=== PATIENT | female | born 1975 | race Caucasian/White ===

== ENCOUNTER 2017-01-23 17:13 | Emergency (ER) | payer OTHER ==
[~2017-01-23] VITALS: Ht 162.6 cm; Wt 68.0 kg
[~2017-01-23 17:13] MED LIST: ADDE20XR PO; ARMO90TA PO; CARV12.5 PO; CLON1 PO; DULO60 PO; TRAZ100 PO; TRAZ50TA78 PO
[2017-01-23 17:24] VITALS: BP 114/84; PULSE 86; RESP 20; TEMP 98.4; O2SAT 99
[2017-01-23 18:49] VITALS: BP 126/66; PULSE 68; RESP 16; TEMP 98.6; O2SAT 98
[2017-01-23] MEDS ORDERED: TRAZ1TAB45 PO (18:49)
--- NOTE | 2017-01-23 19:09 | PD ---
HPI Chief Complaint: Psychiatric Symptoms Time Seen by Provider: 18:47 Travel History International Travel<30 days: No Contact w/Intl Traveler<30days: No Traveled to known affect area: No History of Present Illness HPI 41-year-old female that presents to the ED for evaluation of psych. Patient was Carrizales acted by police after apparently she made suicidal threats to and my techs and took photos that she was in a kill herself. This is per Carrizales act. Per patient herself her is trying to make her seem like an unfit mother. She denies any suicidal or homicidal ideation to me. She does have a history of psychiatric illness and has been here before for Carrizales act. She denies any history of substance abuse. She is a history of psoriasis. She denies any hallucinations. Symptoms appear to be worsening for the past couple of days secondary to her arguments with her . Police was called by the who Carrizales acted her. PFSH Past Medical History ADHD: Yes Arthritis: Yes (Psoriatic Arthritis per pt.) Asthma: No Autoimmune Disease: Yes (Psortiatic Arthritis per pt. New Dx per pt. ) Blood Disorders: No Depression: Yes Heart Rhythm Problems: No Cancer: No Cardiovascular Problems: Yes (tachycardia) High Cholesterol: Yes Chest Pain: No Congestive Heart Failure: No COPD: No Cerebrovascular Accident: No Patient Takes Glucophage: No Diminished Hearing: No Endocrine: Yes Gastrointestinal Disorders: No Genitourinary: No Headaches: No Hypertension: No Immune Disorder: No Implanted Vascular Access Dvce: No Musculoskeletal: No Neurologic: No Psychiatric: No Reproductive: No Respiratory: No Migraines: No Myocardial Infarction: No Seizures: Yes (2005, XANAX WITHDRAWL) Sleep Apnea: No Thyroid Disease: Yes Tetanus Vaccination: < 5 Years ?: Not LMP: Approx 01/04/2017 per pt. : 2 Para: 2 Miscarriage: 0 : 0 Tubal Ligation: Yes (2011) Past Surgical History Abdominal Surgery: No AICD: No Cardiac Surgery: No Section: Yes (X2) Ear Surgery: No Endocrine Surgery: No Eye Surgery: No Genitourinary Surgery: No Gynecologic Surgery: Yes (c section x 2) Joint Replacement: No Neurologic Surgery: No Oral Surgery: No Pacemaker: No Thoracic Surgery: No Other Surgery: Yes (breast augmentation) Social History Alcohol Use: Yes (3-4/WEEK - Social Use only per pt. 01/23/17) Tobacco Use: Yes (1/3PPD per pt. ) Substance Use: No (Pt denies.) Allergies-Medications (Allergen,Severity, Reaction): Coded Allergies: prochlorperazine (Unverified Allergy, Severe, DYSTONIA, 01/23/17) Per pt. Reported Meds & Prescriptions Reported Meds & Active Scripts Active Reported Trazodone (Trazodone HCl) 150 Mg Tablet 150 Mg PO HS Klonopin (Clonazepam) 1 Mg Tab 1 Mg PO BID Coreg (Carvedilol) 12.5 Mg Tab 12.5 Mg PO BID [place] Thyroid (Thyroid) 90 Mg Tab 90 Mg PO DAILY Adderall Xr 24 HR (Amphetamine/Dextroamphetamine) 20 Mg Cap 20 Mg PO DAILY Once daily in the morning. Review of Systems Except as stated in HPI: all other systems reviewed are Neg Physical Exam Narrative GENERAL: SKIN: Warm and dry. HEAD: Atraumatic. Normocephalic. EYES: Pupils equal and round. No scleral icterus. No injection or drainage. ENT: No nasal bleeding or discharge. Mucous membranes pink and moist. Tongue is midline. No uvula deviation. NECK: Trachea midline. No JVD. CARDIOVASCULAR: Regular rate and rhythm. RESPIRATORY: No accessory muscle use. Clear to auscultation. Breath sounds equal bilaterally. GASTROINTESTINAL: Abdomen soft, non-tender, nondistended. Hepatic and splenic margins not palpable. MUSCULOSKELETAL: Extremities without clubbing, cyanosis, or edema. No obvious deformities. Full range of motion of the upper and lower extremities bilaterally. 2+ pulses bilaterally. NEUROLOGICAL: Awake and alert. No obvious cranial nerve deficits. Motor grossly within normal limits. Five out of 5 muscle strength in the arms and legs. Normal speech. PSYCHIATRIC: Anxious mood and affect; insight and judgment normal. Data Data Last Documented VS Vital Signs Date Time Temp Pulse Resp B/P (MAP) Pulse Ox O2 Delivery O2 Flow Rate FiO2 01/23/17 18:49 98.6 68 16 126/66 (86) 98 Orders Orders Complete Blood Count With Diff (01/23/17 18:48) Comprehensive Metabolic Panel (01/23/17 18:48) Psych Screen (01/23/17 18:48) Drug Screen, Random Urine (01/23/17 18:48) Alcohol (Ethanol) (01/23/17 18:48) Salicylates (Aspirin) (01/23/17 18:48) Tylenol (Acetaminophen) (01/23/17 18:48) Lorazepam (Ativan) (01/23/17 19:15) Ibuprofen (Motrin) (01/23/17 20:15) Labs Laboratory Tests Test 01/23/17 19:35 01/23/17 19:59 White Blood Count 7.3 TH/MM3 Red Blood Count 4.07 MIL/MM3 Hemoglobin 11.4 GM/DL Hematocrit 35.3 % Mean Corpuscular Volume 86.6 FL Mean Corpuscular Hemoglobin 28.1 PG Mean Corpuscular Hemoglobin Concent 32.4 % Red Cell Distribution Width 17.0 % Platelet Count 366 TH/MM3 Mean Platelet Volume 7.6 FL Neutrophils (%) (Auto) 65.0 % Lymphocytes (%) (Auto) 22.3 % Monocytes (%) (Auto) 9.1 % Eosinophils (%) (Auto) 2.9 % Basophils (%) (Auto) 0.7 % Neutrophils # (Auto) 4.7 TH/MM3 Lymphocytes # (Auto) 1.6 TH/MM3 Monocytes # (Auto) 0.7 TH/MM3 Eosinophils # (Auto) 0.2 TH/MM3 Basophils # (Auto) 0.1 TH/MM3 CBC Comment DIFF FINAL Differential Comment Salicylates Level 1.8 MG/DL MDM Medical Decision Making Medical Screen Exam Complete: Yes Emergency Medical Condition: Yes Medical Record Reviewed: Yes Interpretation(s) CBC Diagram 01/23/17 19:35 Differential Diagnosis Depression versus suicidal ideation versus anxiety versus adjustment disorder versus mood disorder versus bipolar disorder versus schizophrenia versus paranoid disorder versus psychosis versus substance abuse versus alcohol abuse versus alcohol induced psychosis versus homicidality addition versus cutting versus personality disorder Narrative Course 41-year-old female that presents to the ED for evaluation of psych. Patient was properly examined and was found to have signs and symptoms consistent with psychiatric illness. No sign of acute medical distress. Labs were drawn. Patient requested something for sleep secondary to anxiety and she was given Ativan. Patient will be medically clear. Okay to be seen by psych. Mental health screening was discussed with the patient. Diagnosis Primary Impression: Mood disorder Howard Martinez Jan 23, 2017 19:09
[2017-01-23] MEDS ORDERED: LORazepam 2 MG TAB PO ONE (19:15)
[2017-01-23 20:01] LABS: AUTOMATED NEUTROPHIL # 4.7 TH/MM3 (1.8-7.7); BASOPHIL # 0.1 TH/MM3 (0-0.2); BASOPHIL % 0.7 % (0.0-2.0); EOSINOPHIL # 0.2 TH/MM3 (0-0.4); EOSINOPHIL % 2.9 % (0.0-4.0); HEMATOCRIT 35.3 % (35.0-46.0); HEMO FLAGS DIFF FINAL; LYMPH % 22.3 % (9.0-44.0); LYMPHOCYTE # 1.6 TH/MM3 (1.0-4.8); MEAN CELL VOLUME 86.6 FL (80.0-100.0); MEAN CORPUSCULAR HEMOGLOBIN 28.1 PG (27.0-34.0); MEAN CORPUSCULAR HGB CONC 32.4 % (32.0-36.0); MONO % 9.1 % (0.0-8.0); PLATELET COUNT 366 TH/MM3 (150-450); RED BLOOD COUNT 4.07 MIL/MM3 (4.00-5.30); WHITE BLOOD COUNT 7.3 TH/MM3 (4.0-11.0)
[2017-01-23 20:13] LABS: ANION GAP 9 MEQ/L (5-15); AST (GOT) 17 U/L (15-37); BLOOD UREA NITROGEN 13 MG/DL (7-18); CHLORIDE 103 MEQ/L (98-107); GLOMERULAR FILTRATION RATE 97 ML/MIN (>89); POTASSIUM 3.7 MEQ/L (3.5-5.1); SODIUM (NA) 137 MEQ/L (136-145)
[2017-01-23 20:14] LABS: ALT (GPT) 19 U/L (10-53)
[2017-01-23] MEDS ORDERED: IBUPROFEN 800 MG TAB PO ONE (20:15)
[2017-01-23 20:17] LABS: ALKALINE PHOSPHATASE 74 U/L (45-117); TOTAL BILIRUBIN ADULT 0.2 MG/DL (0.2-1.0)
[2017-01-23 20:21] LABS: ACETAMINOPHEN LESS THAN 2.0 MCG/ML (10.0-30.0); ALCOHOL LESS THAN 3 MG/DL (0-5)
[2017-01-24 06:10] VITALS: BP 114/59; PULSE 97; RESP 17; O2SAT 100
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
--- NOTE | 2017-01-24 08:53 | PD ---
Physical Exam Time Seen by Provider: 08:52 ERIKA Busby has evaluated patient, lifted 3 cracked, and the patient will be discharged. Data Data Last Documented VS Vital Signs Date Time Temp Pulse Resp B/P (MAP) Pulse Ox O2 Delivery O2 Flow Rate FiO2 01/24/17 06:10 97 17 114/59 (77) 100 01/23/17 18:49 98.6 Orders Orders Complete Blood Count With Diff (01/23/17 18:48) Comprehensive Metabolic Panel (01/23/17 18:48) Psych Screen (01/23/17 18:48) Drug Screen, Random Urine (01/23/17 18:48) Alcohol (Ethanol) (01/23/17 18:48) Salicylates (Aspirin) (01/23/17 18:48) Tylenol (Acetaminophen) (01/23/17 18:48) Lorazepam (Ativan) (01/23/17 19:15) Ibuprofen (Motrin) (01/23/17 20:15) Diet Regular Basic (01/24/17 Breakfast) Labs Laboratory Tests Test 01/23/17 19:35 01/23/17 19:59 White Blood Count 7.3 TH/MM3 Red Blood Count 4.07 MIL/MM3 Hemoglobin 11.4 GM/DL Hematocrit 35.3 % Mean Corpuscular Volume 86.6 FL Mean Corpuscular Hemoglobin 28.1 PG Mean Corpuscular Hemoglobin Concent 32.4 % Red Cell Distribution Width 17.0 % Platelet Count 366 TH/MM3 Mean Platelet Volume 7.6 FL Neutrophils (%) (Auto) 65.0 % Lymphocytes (%) (Auto) 22.3 % Monocytes (%) (Auto) 9.1 % Eosinophils (%) (Auto) 2.9 % Basophils (%) (Auto) 0.7 % Neutrophils # (Auto) 4.7 TH/MM3 Lymphocytes # (Auto) 1.6 TH/MM3 Monocytes # (Auto) 0.7 TH/MM3 Eosinophils # (Auto) 0.2 TH/MM3 Basophils # (Auto) 0.1 TH/MM3 CBC Comment DIFF FINAL Differential Comment Blood Urea Nitrogen 13 MG/DL Creatinine 0.67 MG/DL Random Glucose 87 MG/DL Total Protein 7.3 GM/DL Albumin 3.6 GM/DL Calcium Level 8.8 MG/DL Alkaline Phosphatase 74 U/L Aspartate Amino Transf (AST/SGOT) 17 U/L Alanine Aminotransferase (ALT/SGPT) 19 U/L Total Bilirubin 0.2 MG/DL Sodium Level 137 MEQ/L Potassium Level 3.7 MEQ/L Chloride Level 103 MEQ/L Carbon Dioxide Level 25.0 MEQ/L Anion Gap 9 MEQ/L Estimat Glomerular Filtration Rate 97 ML/MIN Salicylates Level 1.8 MG/DL Acetaminophen Level LESS THAN 2.0 MCG/ML Ethyl Alcohol Level LESS THAN 3 MG/DL Urine Opiates Screen NEG Urine Barbiturates Screen NEG Urine Amphetamines Screen POS Urine Benzodiazepines Screen POS Urine Cocaine Screen POS Urine Cannabinoids Screen NEG MDM Supervised Visit with CAROLEE: No Narrative Course ERIKA Aguirre has evaluated the patient, lifted the Carrizales act and the patient will be discharged home. Patient contracts safety. Denies suicidal or homicidal ideations. Patient will be provided community resource packet to [facility] for follow-up. Has friends and family for support. Patient is medically cleared for discharge. Diagnosis Primary Impression: Mood disorder Referrals: JOELLE (Out patient) [facility] Primary Care Physician Psychiatrist [facility] Patient Instructions: General Instructions, Mood Disorders (ED) Additional Instruction: Contract safety to your self and others Follow-up with psychiatry Follow-up with primary care provider Follow-up with Luis Armando Hector Return to the emergency department immediately with worsening of symptoms Med/Other Pt SpecificInfo: No Meds Exist/No RX given Disposition: 01 DISCHARGE HOME Condition: Stable Emerald Jackson Jan 24, 2017 08:53
[2017-01-24 08:54] VITALS: BP 114/59; TEMP 97.8
== END 2017-01-24 09:00 | disposition home or self-care (01) ==
LOC: NEDAMB 17:13 → NEPJ 01-24 09:00
DX: F39 Unspecified mood [affective] disorder (principal); F19.94 Other psychoactive substance use, unspecified with psychoactive substance-induced mood disorder; E07.9 Disorder of thyroid, unspecified; E78.00 Pure hypercholesterolemia, unspecified; F17.200 Nicotine dependence, unspecified, uncomplicated; Z79.899 Other long term (current) drug therapy; Z86.59 Personal history of other mental and behavioral disorders; Z87.39 Personal history of other diseases of the musculoskeletal system and connective tissue; Z86.2 Personal history of diseases of the blood and blood-forming organs and certain disorders involving the immune mechanism; Z86.79 Personal history of other diseases of the circulatory system
CPT/HCPCS: 80053; 80307; 85025; 99283

== ENCOUNTER 2017-02-28 20:52 | Emergency (ER) | payer SELFPAY ==
[~2017-02-28] VITALS: Ht 162.6 cm; Wt 66.6 kg
[~2017-02-28 20:52] MED LIST changes: -DULO60 PO; -TRAZ100 PO; +TRAZ1TAB14 PO; -TRAZ50TA78 PO
[2017-02-28 21:05] VITALS: BP 119/78; PULSE 99; RESP 15; TEMP 97.7; O2SAT 99
[2017-02-28] MEDS ORDERED: SODIUM CHLOR 0.9% 1000 ML INJ 1,000 ML IV SCH (21:43)
[2017-02-28] MEDS ORDERED: MORPHINE SULFATE 4 MG/ML INJ IV PUSH ONE (21:45)
[2017-02-28] MEDS ORDERED: SODIUM CHLORIDE 0.9% FLUSH 10 ML FLUSH IVF PRN (21:45)
--- NOTE | 2017-02-28 21:59 | PD ---
HPI Chief Complaint: Syncope/Near-Syncope Time Seen by Provider: 21:36 Travel History International Travel<30 days: No Contact w/Intl Traveler<30days: No Traveled to known affect area: No History of Present Illness HPI Patient is a 41-year-old female who presents to emergency room complaints of right-sided facial pain. Patient reports that she usually takes trazodone to go to sleep, reports that last night, she took her dose of trazodone and went to bed. Patient reports that she woke up in the middle night to use the restroom, reports that after she used the restroom, she stood up and had a syncopal episode. Reports that she thinks that she hit her head on the toilet and passed out onto the floor for a few minutes. Patient reports that she has not been drinking enough fluids and may have had an episode of orthostatic hypotension. Patient reports that she currently is not on anticoagulants, reports no chest pain or shortness of breath at this time. Patient reports that she noticed increased bruising's to her face tonight and crepitus to the right side of her face, patient was concerned for possible facial fracture. Patient also reports that she has pain to the right side of her hip, reports that she has been ambulating all day without any difficulties PFS Past Medical History ADHD: Yes Arthritis: Yes (Psoriatic Arthritis per pt.) Asthma: No Autoimmune Disease: Yes (Psortiatic Arthritis per pt. New Dx per pt. ) Blood Disorders: No Depression: Yes Heart Rhythm Problems: No Cancer: No Cardiovascular Problems: Yes (tachycardia) High Cholesterol: Yes Chest Pain: No Congestive Heart Failure: No COPD: No Cerebrovascular Accident: No Diminished Hearing: No Endocrine: Yes Gastrointestinal Disorders: No Genitourinary: No Headaches: No Hypertension: No Immune Disorder: No Implanted Vascular Access Dvce: No Musculoskeletal: No Neurologic: No Psychiatric: No Reproductive: No Respiratory: No Migraines: No Myocardial Infarction: No Seizures: Yes (2005, XANAX WITHDRAWL) Sleep Apnea: No Thyroid Disease: Yes Tetanus Vaccination: < 5 Years Influenza Vaccination: Yes ?: Not LMP: now : 2 Para: 2 Miscarriage: 0 : 0 Tubal Ligation: Yes (2011) Past Surgical History Abdominal Surgery: No AICD: No Cardiac Surgery: No Section: Yes (X2) Ear Surgery: No Endocrine Surgery: No Eye Surgery: No Genitourinary Surgery: No Gynecologic Surgery: Yes (c section x 2) Joint Replacement: No Neurologic Surgery: No Oral Surgery: No Pacemaker: No Thoracic Surgery: No Other Surgery: Yes (breast augmentation) Social History Alcohol Use: Yes (3-4/WEEK - Social Use only per pt. 01/23/17) Tobacco Use: Yes (1/3PPD per pt. ) Substance Use: No (Pt denies abuse. ) Allergies-Medications (Allergen,Severity, Reaction): Coded Allergies: prochlorperazine (Verified Allergy, Severe, DYSTONIA, 02/28/17) Per pt. Reported Meds & Prescriptions Reported Meds & Active Scripts Active Reported Trazodone (Trazodone HCl) 150 Mg Tablet 150 Mg PO HS Klonopin (Clonazepam) 1 Mg Tab 1 Mg PO BID Coreg (Carvedilol) 12.5 Mg Tab 12.5 Mg PO BID [place] Thyroid (Thyroid) 90 Mg Tab 90 Mg PO DAILY Adderall Xr 24 HR (Amphetamine/Dextroamphetamine) 20 Mg Cap 20 Mg PO DAILY Once daily in the morning. Review of Systems General / Constitutional: No: Fever Eyes: No: Diploplia, Blurred Vision, Redness, Foreign Body Sensation, Pain, Tearing, Visual changes HENT: No: Headaches, Vertigo, Lightheadedness Cardiovascular: No: Chest Pain or Discomfort Respiratory: No: Shortness of Breath Gastrointestinal: No: Abdominal Pain Genitourinary: No: Dysuria Musculoskeletal: Positive: Pain (right hip pain) Skin: No Rash Neurologic: Positive: Syncope, Headache, No: Weakness, Dizziness Psychiatric: No: Depression Endocrine: No: Polydipsia Hematologic/Lymphatic: No: Easy Bruising Physical Exam Narrative GENERAL: Mild distress SKIN: Focused skin assessment warm/dry. Patient with bruising to the right maxilla HEAD: Normocephalic. Patient with bruising to the right maxilla EYES: Pupils equal and round. No scleral icterus. No injection or drainage. ENT: No nasal bleeding or discharge. Mucous membranes pink and moist. NECK: Trachea midline. No JVD. CARDIOVASCULAR: Regular rate and rhythm. No murmur appreciated. RESPIRATORY: No accessory muscle use. Clear to auscultation. Breath sounds equal bilaterally. GASTROINTESTINAL: Abdomen soft, non-tender, nondistended. Hepatic and splenic margins not palpable. MUSCULOSKELETAL: No obvious deformities. No clubbing. No cyanosis. No edema. Patient with pain with ROM to right hip. NEUROLOGICAL: Awake and alert. No obvious cranial nerve deficits. Motor grossly within normal limits. Normal speech. PSYCHIATRIC: Appropriate mood and affect; insight and judgment normal. Data Data Last Documented VS Vital Signs Date Time Temp Pulse Resp B/P (MAP) Pulse Ox O2 Delivery O2 Flow Rate FiO2 02/28/17 22:31 100 Room Air 02/28/17 22:31 71 18 97/58 (71) 82 18 102/66 (78) 87 18 110/72 (85) 02/28/17 21:05 97.7 Orders Orders Basic Metabolic Panel (Bmp) (02/28/17 21:43) Complete Blood Count With Diff (02/28/17 21:43) Prothrombin Time / Inr (Pt) (02/28/17 21:43) Act Partial Throm Time (Ptt) (02/28/17 21:43) Urinalysis - C+S If Indicated (02/28/17 21:43) Ct Brain W/O Iv Contrast(Rout) (02/28/17 21:43) Ct Facial Bones W/O Iv Cont (02/28/17 21:43) Iv Access Insert/Monitor (02/28/17 21:43) Ecg Monitoring (02/28/17 21:43) Oxygen Administration (02/28/17 21:43) Morphine Inj (Morphine Inj) (02/28/17 21:45) Sodium Chlor 0.9% 1000 Ml Inj (Ns 1000 M (02/28/17 21:43) Sodium Chloride 0.9% Flush (Ns Flush) (02/28/17 21:45) Hip, Uni(Ap&Lat) Wo Ap Pelvis (02/28/17 ) Orthostatic Vital Signs (02/28/17 21:43) Ed Urine Pregnancytest Poc (02/28/17 21:43) Drug Screen, Random Urine (02/28/17 21:57) Potassium Chloride (Kcl) (02/28/17 23:00) Labs Laboratory Tests Test 02/28/17 22:15 White Blood Count 6.5 TH/MM3 Red Blood Count 4.39 MIL/MM3 Hemoglobin 12.7 GM/DL Hematocrit 39.1 % Mean Corpuscular Volume 89.1 FL Mean Corpuscular Hemoglobin 28.9 PG Mean Corpuscular Hemoglobin Concent 32.5 % Red Cell Distribution Width 16.3 % Platelet Count 405 TH/MM3 Mean Platelet Volume 7.1 FL Neutrophils (%) (Auto) 59.8 % Lymphocytes (%) (Auto) 25.7 % Monocytes (%) (Auto) 10.7 % Eosinophils (%) (Auto) 3.2 % Basophils (%) (Auto) 0.6 % Neutrophils # (Auto) 3.9 TH/MM3 Lymphocytes # (Auto) 1.7 TH/MM3 Monocytes # (Auto) 0.7 TH/MM3 Eosinophils # (Auto) 0.2 TH/MM3 Basophils # (Auto) 0.0 TH/MM3 CBC Comment DIFF FINAL Differential Comment Prothrombin Time 10.9 SEC Prothromb Time International Ratio 1.0 RATIO Activated Partial Thromboplast Time 28.4 SEC Urine Color YELLOW Urine Turbidity CLEAR Urine pH 6.0 Urine Specific [place] 1.028 Urine Protein TRACE mg/dL Urine Glucose (UA) NEG mg/dL Urine Ketones TRACE mg/dL Urine Occult Blood TRACE Urine Nitrite NEG Urine Bilirubin NEG Urine Leukocyte Esterase NEG Urine RBC 0-3 /hpf Urine WBC 0-2 /hpf Urine Squamous Epithelial Cells 0-5 /hpf Urine Mucus MOD /lpf Microscopic Urinalysis Comment CULT NOT INDICATED Blood Urea Nitrogen 12 MG/DL Creatinine 0.95 MG/DL Random Glucose 58 MG/DL Calcium Level 9.2 MG/DL Sodium Level 140 MEQ/L Potassium Level 3.1 MEQ/L Chloride Level 101 MEQ/L Carbon Dioxide Level 30.3 MEQ/L Anion Gap 9 MEQ/L Estimat Glomerular Filtration Rate 65 ML/MIN Urine Opiates Screen NEG Urine Barbiturates Screen NEG Urine Amphetamines Screen POS Urine Benzodiazepines Screen POS Urine Cocaine Screen NEG Urine Cannabinoids Screen NEG MDM Medical Decision Making Medical Screen Exam Complete: Yes Emergency Medical Condition: Yes Medical Record Reviewed: Yes Interpretation(s) Vital Signs Date Time Temp Pulse Resp B/P (MAP) Pulse Ox O2 Delivery O2 Flow Rate FiO2 02/28/17 21:35 Room Air 02/28/17 21:05 97.7 99 15 119/78 (92) 99 Differential Diagnosis Orthostatic hypotension, maxillary fracture, ICH, hip contusion, electrolyte abnormality Narrative Course 41 year old female who presents to emergency room with complaints of right- sided facial pain after she fell last night. Reports concerns that she felt crepitus the right side of her face, concerns for possible facial fracture. Patient reports that she thinks that she may have had an episode of orthostatic hypotension after she used the bathroom last night as she had a syncopal episode after she stood up after using the bathroom last night. During the course of the patients emergency department visit, the patients history, examination, and differential diagnosis were reviewed with the patient. The patient was placed on a secured entrance monitor with oximetry and frequent blood pressure monitoring. The patient had IV access obtained and blood work sent for analysis. The patient was initially provided IVF, IV morphine as well as potassium supplements The patients laboratory studies were reviewed and remarkable for CBC & BMP Diagram 02/28/17 22:15 Calcium Level 9.2 Radiology studies are pending and were signed out to Dr. Cade at end of shift Patient Instructions: General Instructions, Narcotic given in the ED Additional Instructions: Please provide patient with a copy of her studies at discharge Please follow up with your primary care doctor in 2-3 days Return to the ER if symptoms worsen or progress Return to the ER as needed Med/Other Pt SpecificInfo: Prescription(s) given Fanta Long DO Feb 28, 2017 21:59
[2017-02-28 22:29] LABS: AUTOMATED NEUTROPHIL # 3.9 TH/MM3 (1.8-7.7); BASOPHIL % 0.6 % (0.0-2.0); EOSINOPHIL # 0.2 TH/MM3 (0-0.4); EOSINOPHIL % 3.2 % (0.0-4.0); HEMATOCRIT 39.1 % (35.0-46.0); HEMO FLAGS DIFF FINAL; LYMPH % 25.7 % (9.0-44.0); LYMPHOCYTE # 1.7 TH/MM3 (1.0-4.8); MEAN CELL VOLUME 89.1 FL (80.0-100.0); MEAN CORPUSCULAR HEMOGLOBIN 28.9 PG (27.0-34.0); MEAN CORPUSCULAR HGB CONC 32.5 % (32.0-36.0); MONO % 10.7 % (0.0-8.0); NEUT % 59.8 % (16.0-70.0); PLATELET COUNT 405 TH/MM3 (150-450); RED BLOOD COUNT 4.39 MIL/MM3 (4.00-5.30); RED CELL DISTRIBUTION WIDTH 16.3 % (11.6-17.2); WHITE BLOOD COUNT 6.5 TH/MM3 (4.0-11.0)
[2017-02-28 22:30] LABS: GLUCOSE,URINE NEG (NEG); KETONE, URINE TRACE mg/dL (NEG); NITRITE,URINE NEG (NEG)
[2017-02-28 22:31] VITALS: BP_SYST 102; BP_SYST 110; BP_SYST 97; BP_DIAS 58; BP_DIAS 66; BP_DIAS 72; RESP 18
[2017-02-28 22:32] LABS: POTASSIUM 3.1 MEQ/L (3.5-5.1)
[2017-02-28 22:36] LABS: BICARBONATE 30.3 MEQ/L (21.0-32.0)
[2017-02-28 22:38] LABS: APTT (PATIENT) 28.4 SEC (24.3-30.1); PROTHROMBIN TIME - PATIENT 10.9 SEC (9.8-11.6)
[2017-02-28 22:51] LABS: BLOOD, URINE TRACE (NEG); URINE COLOR YELLOW (YELLW/STRAW)
[2017-02-28 22:52] LABS: COMMENT (UR) CULT NOT INDICATED; CULTURE IF INDICATED CULT NOT INDICATED; MUCUS URINE MOD /lpf (OCC); RBC, URINE 0-3 /hpf (0-3); SQUAMOUS EPITHELIAL CELL URINE 0-5 /hpf (0-5); WBC, URINE 0-2 /hpf (0-5)
[2017-02-28] MEDS ORDERED: POTASSIUM CHLORIDE 10 MEQ CONTROLLED RELEASE TAB PO ONE (23:00)
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
--- NOTE | 2017-02-28 23:10 | RADRPT ---
EXAM DATE/TIME: 02/28/2017 22:47 [facility] COMPARISON: No previous studies available for comparison. INDICATIONS : <Joint pain hip pain> MEDICAL HISTORY : <Joint pain hip pain>> SURGICAL HISTORY : <<None> ENCOUNTER: <<Initial> ACUITY: <<Acute> PAIN SCORE: <Unknown> LOCATION: <Right hip> FINDINGS: A two view examination of the right hip was performed. The primary and secondary trabecular pattern of the femoral neck is intact. The hip joint is of normal width without significant sclerosis or bon y hypertrophy. The acetabulum is grossly intact. CONCLUSION: Unremarkable examination of the right hip. Michael Danielle MD on February 28, 2017 at 23:08 Board Certified Radiologist. This report was verified electronically.
--- NOTE | 2017-02-28 23:47 | PD ---
Physical Exam Narrative CT head face neative and Right HIP xray was negative for fracture as well Data Data Last Documented VS Vital Signs Date Time Temp Pulse Resp B/P (MAP) Pulse Ox O2 Delivery O2 Flow Rate FiO2 03/01/17 00:35 02/28/17 23:56 70 16 96 Room Air 02/28/17 21:05 97.7 Orders Orders Basic Metabolic Panel (Bmp) (02/28/17 21:43) Complete Blood Count With Diff (02/28/17 21:43) Prothrombin Time / Inr (Pt) (02/28/17 21:43) Act Partial Throm Time (Ptt) (02/28/17 21:43) Urinalysis - C+S If Indicated (02/28/17 21:43) Ct Brain W/O Iv Contrast(Rout) (02/28/17 21:43) Ct Facial Bones W/O Iv Cont (02/28/17 21:43) Iv Access Insert/Monitor (02/28/17 21:43) Ecg Monitoring (02/28/17 21:43) Oxygen Administration (02/28/17 21:43) Morphine Inj (Morphine Inj) (02/28/17 21:45) Sodium Chlor 0.9% 1000 Ml Inj (Ns 1000 M (02/28/17 21:43) Sodium Chloride 0.9% Flush (Ns Flush) (02/28/17 21:45) Hip, Uni(Ap&Lat) Wo Ap Pelvis (02/28/17 ) Orthostatic Vital Signs (02/28/17 21:43) Ed Urine Pregnancytest Poc (02/28/17 21:43) Drug Screen, Random Urine (02/28/17 21:57) Potassium Chloride (Kcl) (02/28/17 23:00) Ed Discharge Order (03/01/17 00:07) Labs Laboratory Tests Test 02/28/17 22:15 White Blood Count 6.5 TH/MM3 Red Blood Count 4.39 MIL/MM3 Hemoglobin 12.7 GM/DL Hematocrit 39.1 % Mean Corpuscular Volume 89.1 FL Mean Corpuscular Hemoglobin 28.9 PG Mean Corpuscular Hemoglobin Concent 32.5 % Red Cell Distribution Width 16.3 % Platelet Count 405 TH/MM3 Mean Platelet Volume 7.1 FL Neutrophils (%) (Auto) 59.8 % Lymphocytes (%) (Auto) 25.7 % Monocytes (%) (Auto) 10.7 % Eosinophils (%) (Auto) 3.2 % Basophils (%) (Auto) 0.6 % Neutrophils # (Auto) 3.9 TH/MM3 Lymphocytes # (Auto) 1.7 TH/MM3 Monocytes # (Auto) 0.7 TH/MM3 Eosinophils # (Auto) 0.2 TH/MM3 Basophils # (Auto) 0.0 TH/MM3 CBC Comment DIFF FINAL Differential Comment Prothrombin Time 10.9 SEC Prothromb Time International Ratio 1.0 RATIO Activated Partial Thromboplast Time 28.4 SEC Urine Color YELLOW Urine Turbidity CLEAR Urine pH 6.0 Urine Specific [place] 1.028 Urine Protein TRACE mg/dL Urine Glucose (UA) NEG mg/dL Urine Ketones TRACE mg/dL Urine Occult Blood TRACE Urine Nitrite NEG Urine Bilirubin NEG Urine Leukocyte Esterase NEG Urine RBC 0-3 /hpf Urine WBC 0-2 /hpf Urine Squamous Epithelial Cells 0-5 /hpf Urine Mucus MOD /lpf Microscopic Urinalysis Comment CULT NOT INDICATED Blood Urea Nitrogen 12 MG/DL Creatinine 0.95 MG/DL Random Glucose 58 MG/DL Calcium Level 9.2 MG/DL Sodium Level 140 MEQ/L Potassium Level 3.1 MEQ/L Chloride Level 101 MEQ/L Carbon Dioxide Level 30.3 MEQ/L Anion Gap 9 MEQ/L Estimat Glomerular Filtration Rate 65 ML/MIN Urine Opiates Screen NEG Urine Barbiturates Screen NEG Urine Amphetamines Screen POS Urine Benzodiazepines Screen POS Urine Cocaine Screen NEG Urine Cannabinoids Screen NEG MDM Supervised Visit with CAROLEE: No Diagnosis Primary Impression: Contusion of face Additional Impression: Strain of right hip Patient Instructions: Contusion in Adults (ED), General Instructions, Narcotic given in the ED Additional Instruction: Please provide patient with a copy of her studies at discharge Please follow up with your primary care doctor in 2-3 days Return to the ER if symptoms worsen or progress Return to the ER as needed Scripts Tramadol (Tramadol) 50 Mg Tab 50 MG PO Q6HR Y for PAIN, #12 TAB 0 Refills Prov: Roberto Cade MD 03/01/17 Ibuprofen (Ibuprofen) 600 Mg Tab 600 MG PO Q6H Y for Pain/Inflammation, #40 TAB 0 Refills Prov: Roberto Cade MD 02/28/17 Disposition: 01 DISCHARGE HOME Condition: Good Roberto Cade MD Feb 28, 2017 23:47
[2017-02-28 23:56] VITALS: BP 101/70; PULSE 70; RESP 16; O2SAT 96
[2017-02-28] MEDS ORDERED: IBUP-232 PO (23:59)
[2017-03-01] MEDS ORDERED: TRAM50TA PO (00:31)
== END 2017-03-01 00:37 | disposition home or self-care (01) ==
LOC: PHED 20:52
DX: S00.83XA Contusion of other part of head, initial encounter (principal); S76.011A Strain of muscle, fascia and tendon of right hip, initial encounter; F17.200 Nicotine dependence, unspecified, uncomplicated; W19.XXXA Unspecified fall, initial encounter; Y92.002 Bathroom of unspecified non-institutional (private) residence as the place of occurrence of the external cause; Z79.899 Other long term (current) drug therapy
CPT/HCPCS: 70450; 70486; 73502; 80048; 80307; 81001; 84703; 85025; 85610; 85730; 96361; 96374; 99285; J2270; J7030

== ENCOUNTER 2017-03-04 06:45 | Emergency (ER) | payer OTHER ==
[~2017-03-04 06:45] MED LIST changes: +IBUP-232 PO; +TRAM50TA PO
[2017-03-04 06:53] VITALS: BP 105/71; PULSE 88; RESP 18; O2SAT 98
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
[2017-03-04] MEDS ORDERED: TRAM50TA PO (07:41)
== END 2017-03-04 07:52 | disposition home or self-care (01) ==
LOC: PHED 06:45
DX: S92.424A Nondisplaced fracture of distal phalanx of right great toe, initial encounter for closed fracture (principal); E78.00 Pure hypercholesterolemia, unspecified; F32.9 Major depressive disorder, single episode, unspecified; V03.90XA Pedestrian on foot injured in collision with car, pick-up truck or van, unspecified whether traffic or nontraffic accident, initial encounter; Y93.55 Activity, bike riding; F17.210 Nicotine dependence, cigarettes, uncomplicated; Z79.899 Other long term (current) drug therapy
CPT/HCPCS: 29550; 73630